=== PATIENT | male | born 1940 ===

== ENCOUNTER 2023-04-20 18:10 | Inpatient (IN) | payer MEDICARE, OTHER ==
[~2023-04-20] VITALS: Ht 172.7 cm; Wt 79.8 kg
[2023-04-20 20:20] VITALS: BP 130/71; PULSE 75; RESP 18; TEMP 98; O2SAT 98
[2023-04-20] MEDS ORDERED: BENZONATATE 100 MG CAPSULE PO PRN (21:15)
[2023-04-20] MEDS ORDERED: FLUTICASONE PROPIONATE 50 MCG/SPRAY 16 GM NASAL SPRAY NASAL PRN (21:15)
[2023-04-20] MEDS ORDERED: TraMADol HCL 50 MG TABLET PO PRN (21:15)
[2023-04-20] MEDS: DOCUSATE SODIUM 100 MG CAPSULE PO SCH (22:54)
[2023-04-20] MEDS: ATORVASTATIN CALCIUM 40 MG TABLET PO SCH (22:54)
[2023-04-20] MEDS: SENNOSIDES 8.6 MG TABLET PO SCH (22:55)
[2023-04-20] MEDS: MELATONIN 3 MG TABLET PO PRN (22:55)
[2023-04-20] MEDS: DONEPEZIL HCL 5 MG TABLET PO SCH (22:55)
[2023-04-20] MEDS: ETHYL ALCOHOL 62% ANTISEPTIC NASAL SANITIZER 0.6 ML AMPUL NASAL SCH (22:55)
[2023-04-20] MEDS: MONTELUKAST SODIUM 10 MG TABLET PO SCH (22:55)
[2023-04-20] MEDS ORDERED: IPRATROPIUM BROMIDE 0.03% 21 MCG/SPRAY 30 ML NASAL SPRAY NASAL PRN (23:15)
[2023-04-21 00:35] VITALS: O2SAT 98
[2023-04-21 07:29] LABS: BASOPHILS % (AUTO) 0.3 % (0.0-2.0); EOSINOPHILS % (AUTO) 1.4 % (1.0-6.0); HEMATOCRIT 34.8 % (41-53); HEMOGLOBIN 11.8 g/dL (13.5-17.5); LYMPHOCYTES % (AUTO) 13.6 % (22.0-44.0); MEAN CORPUSCULAR HEMOGLOBIN 31.1 pg (26.0-34.0); MEAN CORPUSCULAR HGB CONC 33.9 G/dL (31.0-37.0); MEAN CORPUSCULAR VOLUME 92 fL (80-100); MONOCYTES # (AUTO) 0.9 K/uL (0.1-1.0); MONOCYTES % (AUTO) 11.7 % (2.0-9.0); NEUTROPHILS # (AUTO) 5.5 K/uL (1.8-7.7); PLATELET COUNT (AUTO) 189 K/uL (150-450); RED BLOOD CELL COUNT(AUTO) 3.79 MIL/uL (4.50-5.90); RED CELL DISTRIBUTION WIDTH 12.3 % (11.5-14.5)
[2023-04-21 07:40] LABS: ALBUMIN 3.4 g/dL (3.4-5.0); BILIRUBIN,TOTAL 1.3 mg/dL (0.1-1.0); CALCIUM, TOTAL 9.1 mg/dL (8.8-10.5); CREATININE 1.21 mg/dL (0.60-1.30); POTASSIUM 3.9 mmol/L (3.5-5.1); TOTAL PROTEIN, SERUM 6.9 g/dL (6.4-8.2)
[2023-04-21 07:48] LABS: HEMOGLOBIN A1C 5.3 % (3.8-5.6)
[2023-04-21] MEDS: AmLODIPine BESYLATE 5 MG TABLET PO SCH (08:13)
[2023-04-21] MEDS: ETHYL ALCOHOL 62% ANTISEPTIC NASAL SANITIZER 0.6 ML AMPUL NASAL SCH ×2 (08:14→19:59)
[2023-04-21] MEDS: TELMISARTAN 40 MG TABLET PO SCH (08:14)
[2023-04-21] MEDS: DOCUSATE SODIUM 100 MG CAPSULE PO SCH ×2 (08:18→19:59)
[2023-04-21 08:30] VITALS: BP 127/75; PULSE 71; RESP 19; TEMP 98.3; O2SAT 97
[2023-04-21] MEDS: MELATONIN 3 MG TABLET PO PRN (19:59)
[2023-04-21] MEDS: ATORVASTATIN CALCIUM 40 MG TABLET PO SCH (19:59)
[2023-04-21] MEDS: SENNOSIDES 8.6 MG TABLET PO SCH (19:59)
[2023-04-21 20:00] VITALS: BP_SYST 131; BP_DIAS 7; BP_DIAS 74; PULSE 79; RESP 16; TEMP 99; O2SAT 97
[2023-04-21] MEDS: MONTELUKAST SODIUM 10 MG TABLET PO SCH (20:00)
[2023-04-21] MEDS: DONEPEZIL HCL 5 MG TABLET PO SCH (20:00)
[2023-04-22 03:13] VITALS: O2SAT 97
[2023-04-22] MEDS: DOCUSATE SODIUM 100 MG CAPSULE PO SCH ×2 (09:00→20:47)
[2023-04-22] MEDS: AmLODIPine BESYLATE 5 MG TABLET PO SCH (09:02)
[2023-04-22] MEDS: TELMISARTAN 40 MG TABLET PO SCH (09:02)
[2023-04-22] MEDS: ETHYL ALCOHOL 62% ANTISEPTIC NASAL SANITIZER 0.6 ML AMPUL NASAL SCH ×2 (09:08→20:47)
[2023-04-22 14:53] VITALS: BP 106/61; PULSE 71; RESP 16; TEMP 99.2; O2SAT 96
[2023-04-22] MEDS: SODIUM CHLORIDE 1 GM TABLET PO SCH ×2 (16:46→20:47)
[2023-04-22 20:01] VITALS: BP 107/60; PULSE 81; RESP 18; TEMP 99; O2SAT 95
[2023-04-22] MEDS: SENNOSIDES 8.6 MG TABLET PO SCH (20:47)
[2023-04-22] MEDS: DONEPEZIL HCL 5 MG TABLET PO SCH (20:47)
[2023-04-22] MEDS: MONTELUKAST SODIUM 10 MG TABLET PO SCH (20:47)
[2023-04-22] MEDS: MELATONIN 3 MG TABLET PO PRN (20:47)
[2023-04-22] MEDS: ATORVASTATIN CALCIUM 40 MG TABLET PO SCH (20:47)
[2023-04-22 22:31] VITALS: O2SAT 95
[2023-04-23 05:30] VITALS: TEMP 98.4
[2023-04-23 08:00] VITALS: BP 104/63; PULSE 71; RESP 20; TEMP 98; O2SAT 99
[2023-04-23] MEDS: AmLODIPine BESYLATE 5 MG TABLET PO SCH (08:30)
[2023-04-23] MEDS: SODIUM CHLORIDE 1 GM TABLET PO SCH ×3 (08:30→20:45)
[2023-04-23] MEDS: ETHYL ALCOHOL 62% ANTISEPTIC NASAL SANITIZER 0.6 ML AMPUL NASAL SCH ×2 (08:31→20:47)
[2023-04-23] MEDS: DOCUSATE SODIUM 100 MG CAPSULE PO SCH (08:31)
[2023-04-23] MEDS: TELMISARTAN 40 MG TABLET PO SCH (08:32)
[2023-04-23] MEDS: ACETAMINOPHEN 325 MG TABLET PO PRN ×2 (15:46→21:00)
[2023-04-23 20:00] VITALS: BP 102/57; PULSE 70; RESP 20; TEMP 98.3; O2SAT 96
[2023-04-23] MEDS: MONTELUKAST SODIUM 10 MG TABLET PO SCH (20:46)
[2023-04-23] MEDS: SENNOSIDES 8.6 MG TABLET PO SCH (20:46)
[2023-04-23] MEDS: DONEPEZIL HCL 5 MG TABLET PO SCH (20:46)
[2023-04-23] MEDS: ATORVASTATIN CALCIUM 40 MG TABLET PO SCH (20:47)
[2023-04-23] MEDS: DOCUSATE SODIUM 250 MG CAPSULE PO SCH (20:47)
[2023-04-23] MEDS: MELATONIN 3 MG TABLET PO PRN (20:48)
[2023-04-24 08:01] VITALS: BP 114/66; PULSE 66; RESP 20; TEMP 99.4; O2SAT 98
[2023-04-24] MEDS: ETHYL ALCOHOL 62% ANTISEPTIC NASAL SANITIZER 0.6 ML AMPUL NASAL SCH ×2 (08:05→21:08)
[2023-04-24] MEDS: DOCUSATE SODIUM 250 MG CAPSULE PO SCH ×2 (08:06→21:08)
[2023-04-24] MEDS: SODIUM CHLORIDE 1 GM TABLET PO SCH ×3 (08:06→21:09)
[2023-04-24] MEDS: AmLODIPine BESYLATE 5 MG TABLET PO SCH (08:06)
[2023-04-24] MEDS: TELMISARTAN 40 MG TABLET PO SCH (08:06)
[2023-04-24 09:00] VITALS: TEMP 98.3
[2023-04-24 09:45] VITALS: TEMP 98.4
[2023-04-24] MEDS: ACETAMINOPHEN 325 MG TABLET PO PRN (09:45)
[2023-04-24 21:00] VITALS: BP 114/61; PULSE 73; RESP 18; TEMP 99.1; O2SAT 98
[2023-04-24] MEDS: DONEPEZIL HCL 5 MG TABLET PO SCH (21:08)
[2023-04-24] MEDS: ATORVASTATIN CALCIUM 40 MG TABLET PO SCH (21:09)
[2023-04-24] MEDS: SENNOSIDES 8.6 MG TABLET PO SCH (21:09)
[2023-04-24] MEDS: MELATONIN 3 MG TABLET PO PRN (21:10)
[2023-04-24] MEDS: MONTELUKAST SODIUM 10 MG TABLET PO SCH (21:10)
[2023-04-25 03:00] VITALS: TEMP 98.7
[2023-04-25 07:50] LABS: CALCIUM, TOTAL 8.8 mg/dL (8.8-10.5); CREATININE 1.35 mg/dL (0.60-1.30); POTASSIUM 4.3 mmol/L (3.5-5.1)
[2023-04-25 08:00] VITALS: BP 106/58; PULSE 65; RESP 19; TEMP 98; O2SAT 98
[2023-04-25] MEDS: SODIUM CHLORIDE 1 GM TABLET PO SCH ×3 (08:22→20:25)
[2023-04-25] MEDS: DOCUSATE SODIUM 250 MG CAPSULE PO SCH ×2 (08:22→20:25)
[2023-04-25] MEDS: AmLODIPine BESYLATE 5 MG TABLET PO SCH (08:22)
[2023-04-25] MEDS: TELMISARTAN 40 MG TABLET PO SCH (08:23)
[2023-04-25] MEDS: ETHYL ALCOHOL 62% ANTISEPTIC NASAL SANITIZER 0.6 ML AMPUL NASAL SCH ×2 (08:23→20:25)
[2023-04-25 11:07] VITALS: BP 100/61; PULSE 66; RESP 19; TEMP 98.2; O2SAT 96
[2023-04-25] MEDS: ACETAMINOPHEN 325 MG TABLET PO PRN ×2 (11:07→18:53)
[2023-04-25 20:01] VITALS: BP 109/60; PULSE 79; RESP 18; TEMP 98; O2SAT 99
[2023-04-25] MEDS: DONEPEZIL HCL 5 MG TABLET PO SCH (20:25)
[2023-04-25] MEDS: MONTELUKAST SODIUM 10 MG TABLET PO SCH (20:25)
[2023-04-25] MEDS: MELATONIN 3 MG TABLET PO PRN (20:25)
[2023-04-25] MEDS: SENNOSIDES 8.6 MG TABLET PO SCH (20:25)
[2023-04-25] MEDS: ATORVASTATIN CALCIUM 40 MG TABLET PO SCH (20:26)
[2023-04-25 22:18] VITALS: O2SAT 99
[2023-04-26] MEDS: ETHYL ALCOHOL 62% ANTISEPTIC NASAL SANITIZER 0.6 ML AMPUL NASAL SCH ×2 (08:47→20:34)
[2023-04-26] MEDS: DOCUSATE SODIUM 250 MG CAPSULE PO SCH ×2 (08:48→20:33)
[2023-04-26] MEDS: AmLODIPine BESYLATE 5 MG TABLET PO SCH (08:48)
[2023-04-26] MEDS: TELMISARTAN 40 MG TABLET PO SCH (08:49)
[2023-04-26] MEDS: SODIUM CHLORIDE 1 GM TABLET PO SCH ×3 (08:49→20:33)
[2023-04-26] MEDS: ACETAMINOPHEN 325 MG TABLET PO PRN ×2 (09:00→14:42)
[2023-04-26 09:01] VITALS: BP 111/67; PULSE 68; RESP 18; TEMP 98.2; O2SAT 98
[2023-04-26 10:45] VITALS: O2SAT 98
[2023-04-26 20:00] VITALS: BP 103/66; PULSE 69; RESP 18; TEMP 98.1; O2SAT 98
[2023-04-26] MEDS: SENNOSIDES 8.6 MG TABLET PO SCH (20:33)
[2023-04-26] MEDS: MELATONIN 3 MG TABLET PO PRN (20:33)
[2023-04-26] MEDS: DONEPEZIL HCL 5 MG TABLET PO SCH (20:33)
[2023-04-26] MEDS: ATORVASTATIN CALCIUM 40 MG TABLET PO SCH (20:34)
[2023-04-26] MEDS: MONTELUKAST SODIUM 10 MG TABLET PO SCH (20:34)
[2023-04-27] MEDS ORDERED: DONE-52 PO (03:24)
[2023-04-27] MEDS ORDERED: [UNRECOGNIZED DRUG - CODE] PO (03:24)
[2023-04-27] MEDS ORDERED: MONT-35 PO (03:24)
[2023-04-27] MEDS ORDERED: TELM40 PO (03:24)
[2023-04-27] MEDS ORDERED: DOCU-352 PO (03:24)
[2023-04-27] MEDS ORDERED: ATOR40TA28 PO (03:24)
[2023-04-27] MEDS ORDERED: SENN-376 PO (03:24)
[2023-04-27] MEDS ORDERED: AMLO-257 PO (03:24)
[2023-04-27] MEDS: TELMISARTAN 40 MG TABLET PO SCH (08:01)
[2023-04-27] MEDS: DOCUSATE SODIUM 250 MG CAPSULE PO SCH ×2 (08:01→20:44)
[2023-04-27] MEDS: AmLODIPine BESYLATE 5 MG TABLET PO SCH (08:01)
[2023-04-27] MEDS: SODIUM CHLORIDE 1 GM TABLET PO SCH ×3 (08:01→20:43)
[2023-04-27] MEDS: ETHYL ALCOHOL 62% ANTISEPTIC NASAL SANITIZER 0.6 ML AMPUL NASAL SCH ×2 (08:01→20:42)
[2023-04-27 08:27] VITALS: BP 110/63; PULSE 69; RESP 19; TEMP 97.8; O2SAT 97
[2023-04-27] MEDS: ACETAMINOPHEN 325 MG TABLET PO PRN (08:27)
[2023-04-27 10:46] VITALS: O2SAT 98
[2023-04-27] MEDS: MELATONIN 3 MG TABLET PO PRN (20:42)
[2023-04-27] MEDS: SENNOSIDES 8.6 MG TABLET PO SCH (20:43)
[2023-04-27] MEDS: MONTELUKAST SODIUM 10 MG TABLET PO SCH (20:43)
[2023-04-27] MEDS: ATORVASTATIN CALCIUM 40 MG TABLET PO SCH (20:43)
[2023-04-27] MEDS: DONEPEZIL HCL 5 MG TABLET PO SCH (20:44)
[2023-04-27 21:00] VITALS: BP 124/68; PULSE 80; RESP 19; TEMP 97.8; O2SAT 97
[2023-04-28 00:52] VITALS: O2SAT 97
[2023-04-28] MEDS: ETHYL ALCOHOL 62% ANTISEPTIC NASAL SANITIZER 0.6 ML AMPUL NASAL SCH ×2 (08:01→21:20)
[2023-04-28 08:02] VITALS: BP 108/56; PULSE 67; RESP 18; TEMP 98.3; O2SAT 96
[2023-04-28] MEDS: DOCUSATE SODIUM 250 MG CAPSULE PO SCH ×2 (08:02→21:21)
[2023-04-28] MEDS: AmLODIPine BESYLATE 5 MG TABLET PO SCH (08:02)
[2023-04-28] MEDS: ACETAMINOPHEN 325 MG TABLET PO PRN (08:03)
[2023-04-28] MEDS: SODIUM CHLORIDE 1 GM TABLET PO SCH ×2 (08:10→21:21)
[2023-04-28 21:00] VITALS: BP 103/58; PULSE 71; RESP 18; TEMP 98.5; O2SAT 97
[2023-04-28] MEDS: DONEPEZIL HCL 5 MG TABLET PO SCH (21:21)
[2023-04-28] MEDS: SENNOSIDES 8.6 MG TABLET PO SCH (21:21)
[2023-04-28] MEDS: ATORVASTATIN CALCIUM 40 MG TABLET PO SCH (21:21)
[2023-04-28] MEDS: MELATONIN 3 MG TABLET PO PRN (21:22)
[2023-04-28] MEDS: MONTELUKAST SODIUM 10 MG TABLET PO SCH (21:22)
[2023-04-29 08:02] LABS: ANION GAP 5 mmol/L (8-16); CALCIUM, TOTAL 8.7 mg/dL (8.8-10.5); CARBON DIOXIDE 26 mmol/L (22-29); CHLORIDE 106 mmol/L (98-107); CREATININE 1.13 mg/dL (0.60-1.30); GLOMERULAR FILTR. RATE CALC > 60 mL/min (>60); GLUCOSE,RANDOM 104 mg/dL (70-110); POTASSIUM 4.1 mmol/L (3.5-5.1); SODIUM SERUM 137 mmol/L (136-145)
[2023-04-29 08:30] VITALS: BP 119/66; PULSE 65; RESP 19; TEMP 97.8; O2SAT 98
[2023-04-29] MEDS: ETHYL ALCOHOL 62% ANTISEPTIC NASAL SANITIZER 0.6 ML AMPUL NASAL SCH ×2 (08:48→21:44)
[2023-04-29] MEDS: SODIUM CHLORIDE 1 GM TABLET PO SCH ×2 (08:49→21:44)
[2023-04-29] MEDS: AmLODIPine BESYLATE 5 MG TABLET PO SCH (08:49)
[2023-04-29] MEDS: DOCUSATE SODIUM 250 MG CAPSULE PO SCH ×2 (08:49→21:44)
[2023-04-29] MEDS: TELMISARTAN 40 MG TABLET PO SCH (08:49)
[2023-04-29 21:00] VITALS: BP 99/57; PULSE 75; RESP 18; TEMP 97.5; O2SAT 98
[2023-04-29] MEDS: MELATONIN 3 MG TABLET PO PRN (21:44)
[2023-04-29] MEDS: DONEPEZIL HCL 5 MG TABLET PO SCH (21:44)
[2023-04-29] MEDS: ATORVASTATIN CALCIUM 40 MG TABLET PO SCH (21:44)
[2023-04-29] MEDS: MONTELUKAST SODIUM 10 MG TABLET PO SCH (21:44)
[2023-04-29] MEDS: SENNOSIDES 8.6 MG TABLET PO SCH (21:44)
[2023-04-29 22:00] VITALS: BP 103/58
[2023-04-30 07:50] VITALS: BP 125/78; PULSE 95; RESP 19; TEMP 97.5; O2SAT 99
[2023-04-30] MEDS: SODIUM CHLORIDE 1 GM TABLET PO SCH ×2 (08:25→21:20)
[2023-04-30] MEDS: DOCUSATE SODIUM 250 MG CAPSULE PO SCH ×2 (08:25→21:21)
[2023-04-30] MEDS: AmLODIPine BESYLATE 5 MG TABLET PO SCH (08:26)
[2023-04-30] MEDS: ETHYL ALCOHOL 62% ANTISEPTIC NASAL SANITIZER 0.6 ML AMPUL NASAL SCH ×2 (08:26→21:21)
[2023-04-30] MEDS: TELMISARTAN 40 MG TABLET PO SCH (08:26)
[2023-04-30] MEDS: ACETAMINOPHEN 325 MG TABLET PO PRN (11:09)
[2023-04-30 11:18] VITALS: O2SAT 99
[2023-04-30] MEDS ORDERED: IPRA30SP2 NASAL (19:10)
[2023-04-30] MEDS ORDERED: FLUT16H NASAL (19:10)
[2023-04-30 20:10] VITALS: BP 107/59; PULSE 67; RESP 19; TEMP 97.6; O2SAT 100
[2023-04-30] MEDS: MELATONIN 3 MG TABLET PO PRN (21:20)
[2023-04-30] MEDS: MONTELUKAST SODIUM 10 MG TABLET PO SCH (21:20)
[2023-04-30] MEDS: ATORVASTATIN CALCIUM 40 MG TABLET PO SCH (21:20)
[2023-04-30] MEDS: SENNOSIDES 8.6 MG TABLET PO SCH (21:21)
[2023-04-30] MEDS: DONEPEZIL HCL 5 MG TABLET PO SCH (21:21)
[2023-05-01 07:50] VITALS: BP 104/65; PULSE 60; RESP 18; TEMP 98.3; O2SAT 96
[2023-05-01] MEDS: SODIUM CHLORIDE 1 GM TABLET PO SCH ×2 (07:58→20:43)
[2023-05-01] MEDS: DOCUSATE SODIUM 250 MG CAPSULE PO SCH ×2 (07:58→20:36)
[2023-05-01] MEDS: ACETAMINOPHEN 325 MG TABLET PO SCH (07:58)
[2023-05-01] MEDS: TELMISARTAN 40 MG TABLET PO SCH (07:58)
[2023-05-01] MEDS: ETHYL ALCOHOL 62% ANTISEPTIC NASAL SANITIZER 0.6 ML AMPUL NASAL SCH ×2 (07:59→20:35)
[2023-05-01 12:16] VITALS: O2SAT 96
[2023-05-01 12:23] VITALS: PULSE 69; O2SAT 96
[2023-05-01 20:29] VITALS: BP 104/59; PULSE 65; RESP 19; TEMP 97.9; O2SAT 98
[2023-05-01] MEDS: DONEPEZIL HCL 5 MG TABLET PO SCH (20:35)
[2023-05-01] MEDS: MONTELUKAST SODIUM 10 MG TABLET PO SCH (20:35)
[2023-05-01] MEDS: SENNOSIDES 8.6 MG TABLET PO SCH (20:36)
[2023-05-01] MEDS: MELATONIN 3 MG TABLET PO PRN (20:36)
[2023-05-01] MEDS: ATORVASTATIN CALCIUM 40 MG TABLET PO SCH (20:36)
[2023-05-02 07:07] LABS: BASOPHILS % (AUTO) 0.6 % (0.0-2.0); EOSINOPHILS % (AUTO) 3.7 % (1.0-6.0); HEMATOCRIT 29.4 % (41-53); LYMPHOCYTES # (AUTO) 1.5 K/uL (1.0-4.8); LYMPHOCYTES % (AUTO) 24.3 % (22.0-44.0); MEAN CORPUSCULAR HEMOGLOBIN 31.8 pg (26.0-34.0); MEAN CORPUSCULAR VOLUME 94 fL (80-100); MONOCYTES # (AUTO) 0.5 K/uL (0.1-1.0); NEUTROPHILS # (AUTO) 3.8 K/uL (1.8-7.7); NEUTROPHILS % (AUTO) 62.4 % (40.0-70.0); PLATELET COUNT (AUTO) 292 K/uL (150-450); RED BLOOD CELL COUNT(AUTO) 3.15 MIL/uL (4.50-5.90); RED CELL DISTRIBUTION WIDTH 12.6 % (11.5-14.5)
[2023-05-02 07:20] LABS: CALCIUM, TOTAL 8.5 mg/dL (8.8-10.5); CREATININE 1.2 mg/dL (0.60-1.30); POTASSIUM 4.1 mmol/L (3.5-5.1)
[2023-05-02 08:30] VITALS: BP 105/55; PULSE 65; RESP 18; TEMP 98; O2SAT 100
[2023-05-02] MEDS: DOCUSATE SODIUM 250 MG CAPSULE PO SCH ×2 (09:13→21:04)
[2023-05-02] MEDS: ACETAMINOPHEN 325 MG TABLET PO SCH (09:14)
[2023-05-02] MEDS: ETHYL ALCOHOL 62% ANTISEPTIC NASAL SANITIZER 0.6 ML AMPUL NASAL SCH ×2 (09:14→21:04)
[2023-05-02] MEDS: TELMISARTAN 40 MG TABLET PO SCH (09:14)
[2023-05-02] MEDS: SODIUM CHLORIDE 1 GM TABLET PO SCH (09:14)
[2023-05-02] MEDS: SENNOSIDES 8.6 MG TABLET PO SCH (21:00)
[2023-05-02 21:04] VITALS: BP 102/56; PULSE 64; RESP 18; TEMP 98; O2SAT 94
[2023-05-02] MEDS: DONEPEZIL HCL 5 MG TABLET PO SCH (21:04)
[2023-05-02] MEDS: ATORVASTATIN CALCIUM 40 MG TABLET PO SCH (21:04)
[2023-05-02] MEDS: MONTELUKAST SODIUM 10 MG TABLET PO SCH (21:04)
[2023-05-03] MEDS: ACETAMINOPHEN 325 MG TABLET PO PRN (03:56)
[2023-05-03] MEDS: ETHYL ALCOHOL 62% ANTISEPTIC NASAL SANITIZER 0.6 ML AMPUL NASAL SCH ×2 (09:38→20:05)
[2023-05-03] MEDS: ACETAMINOPHEN 325 MG TABLET PO SCH (09:38)
[2023-05-03] MEDS: DOCUSATE SODIUM 250 MG CAPSULE PO SCH ×2 (09:39→20:04)
[2023-05-03] MEDS: TELMISARTAN 40 MG TABLET PO SCH (09:40)
[2023-05-03 10:51] VITALS: BP 87/57; PULSE 67; RESP 18; TEMP 97.6; O2SAT 99
[2023-05-03 11:12] VITALS: O2SAT 99
[2023-05-03 20:00] VITALS: BP 103/58; PULSE 67; RESP 19; TEMP 97.8; O2SAT 100
[2023-05-03] MEDS: MELATONIN 3 MG TABLET PO PRN (20:04)
[2023-05-03] MEDS: ATORVASTATIN CALCIUM 40 MG TABLET PO SCH (20:04)
[2023-05-03] MEDS: SENNOSIDES 8.6 MG TABLET PO SCH (20:04)
[2023-05-03] MEDS: MONTELUKAST SODIUM 10 MG TABLET PO SCH (20:04)
[2023-05-03] MEDS: DONEPEZIL HCL 5 MG TABLET PO SCH (20:04)
[2023-05-03 21:28] VITALS: O2SAT 100
[2023-05-04] MEDS: TELMISARTAN 40 MG TABLET PO SCH (07:46)
[2023-05-04] MEDS: ETHYL ALCOHOL 62% ANTISEPTIC NASAL SANITIZER 0.6 ML AMPUL NASAL SCH ×2 (07:48→21:02)
[2023-05-04] MEDS: ACETAMINOPHEN 325 MG TABLET PO SCH (07:49)
[2023-05-04] MEDS: DOCUSATE SODIUM 250 MG CAPSULE PO SCH ×2 (07:49→21:03)
[2023-05-04 08:05] VITALS: BP 118/64; PULSE 68; RESP 18; TEMP 98.4; O2SAT 98
[2023-05-04] MEDS ORDERED: DONE-52 PO (10:35)
[2023-05-04] MEDS ORDERED: DOCU-352 PO (10:35)
[2023-05-04] MEDS ORDERED: MONT-35 PO (10:35)
[2023-05-04] MEDS ORDERED: FLUT16SP NASAL (10:35)
[2023-05-04] MEDS ORDERED: TELM40 PO (10:35)
[2023-05-04] MEDS ORDERED: ATOR40TA71 PO (10:35)
[2023-05-04 12:07] VITALS: O2SAT 98
[2023-05-04] MEDS: MONTELUKAST SODIUM 10 MG TABLET PO SCH (21:03)
[2023-05-04] MEDS: SENNOSIDES 8.6 MG TABLET PO SCH (21:03)
[2023-05-04] MEDS: DONEPEZIL HCL 5 MG TABLET PO SCH (21:03)
[2023-05-04] MEDS: ATORVASTATIN CALCIUM 40 MG TABLET PO SCH (21:03)
[2023-05-04] MEDS: MELATONIN 3 MG TABLET PO PRN (21:04)
[2023-05-04 21:53] VITALS: BP 97/59; PULSE 67; RESP 20; TEMP 97.9; O2SAT 97
[2023-05-05 01:55] VITALS: O2SAT 97
[2023-05-05 09:01] VITALS: BP 102/63; PULSE 58; RESP 19; TEMP 97.9; O2SAT 98
[2023-05-05] MEDS: ETHYL ALCOHOL 62% ANTISEPTIC NASAL SANITIZER 0.6 ML AMPUL NASAL SCH (09:06)
[2023-05-05] MEDS: ACETAMINOPHEN 325 MG TABLET PO SCH (09:07)
[2023-05-05] MEDS: TELMISARTAN 40 MG TABLET PO SCH (09:08)
[2023-05-05] MEDS: DOCUSATE SODIUM 250 MG CAPSULE PO SCH (09:08)
== END 2023-05-05 14:38 | disposition home health service (06) | DRG 86 ==
LOC: 2WR 18:10
PROVIDERS: ADMIT Physical Medicine & Rehabilitation; ATTEND Physical Medicine & Rehabilitation
DX: S06.5X0A Traumatic subdural hemorrhage without loss of consciousness, initial encounter (principal); E46 Unspecified protein-calorie malnutrition; S42.91XA Fracture of right shoulder girdle, part unspecified, initial encounter for closed fracture; S42.301A Unspecified fracture of shaft of humerus, right arm, initial encounter for closed fracture; E87.1 Hypo-osmolality and hyponatremia; D64.9 Anemia, unspecified; E11.9 Type 2 diabetes mellitus without complications; F03.90 Unspecified dementia, unspecified severity, without behavioral disturbance, psychotic disturbance, mood disturbance, and anxiety; I10 Essential (primary) hypertension; G47.33 Obstructive sleep apnea (adult) (pediatric); R26.9 Unspecified abnormalities of gait and mobility; R47.1 Dysarthria and anarthria; K21.9 Gastro-esophageal reflux disease without esophagitis; R33.9 Retention of urine, unspecified; R41.89 Other symptoms and signs involving cognitive functions and awareness; W18.39XA Other fall on same level, initial encounter; Z91.81 History of falling; Z79.899 Other long term (current) drug therapy; Z68.26 Body mass index [BMI] 26.0-26.9, adult; Y93.89 Activity, other specified; Y92.89 Other specified places as the place of occurrence of the external cause; Y99.8 Other external cause status
CPT/HCPCS: 80048; 80053; 83036; 85025; 87081; 92507; 92508; 92523; 93970; 97110; 97112; 97116; 97150; 97163; 97167; 97530; 97535; 99366